=== PATIENT | male | born 1995 ===

== ENCOUNTER → 2020-06-17 08:40 | Outpatient (CLI) | payer OTHER, SELFPAY ==
[2020-06-17 14:37] LABS: COVID19 -Nasal RAPID Negative (Negative)
== END ==
PROVIDERS: Referring Provider Family Medicine Sleep Medicine; Visit Provider Family Medicine Sleep Medicine
DX: Z20.822 Contact with and (suspected) exposure to COVID-19 (principal); G47.30 Sleep apnea, unspecified
CPT/HCPCS: 87635; 95810

== ENCOUNTER → 2020-06-18 10:37 | Outpatient (CLI) | payer OTHER, SELFPAY ==
[2020-06-18 11:10] LABS: UR Morphine/Opiate cutoff 300 Negative (Negative); Ur Creatinine Normal (Normal); Ur Specific Gravity Normal (Normal); Urine Amphetamines Negative (Negative); Urine Barbiturates Negative (Negative); Urine Benzodiazepines Negative (Negative); Urine Cocaine Negative (Negative); Urine MDMA Negative (Negative); Urine Methadone Negative (Negative); Urine Methamphetamines Negative (Negative); Urine Oxycodone Negative (Negative); Urine Phencyclidine Negative (Negative); Urine Tetrahydrocannabinol Negative (Negative); Urine Tricyclic Antidepressant Negative (Negative); Urine pH Normal (Normal)
== END ==
PROVIDERS: Visit Provider Family Medicine Sleep Medicine
DX: G47.00 Insomnia, unspecified (principal); G47.19 Other hypersomnia
CPT/HCPCS: 80305; 95805